=== PATIENT | male | born 1975 | race Caucasian/White ===

== ENCOUNTER 2022-04-01 15:31 | Emergency (ER) | payer MEDICAID ==
[~2022-04-01] VITALS: Ht 172.7 cm; Wt 79.5 kg
[2022-04-01 16:11] VITALS: BP 98/63
[2022-04-01] MEDS ORDERED: NAPR-1024 PO (16:14)
[2022-04-01] MEDS ORDERED: ALLO-97 PO (16:14)
[2022-04-01] MEDS ORDERED: METO-408 PO (16:16)
[2022-04-01] MEDS ORDERED: TICA90TA PO (16:16)
[2022-04-01] MEDS ORDERED: ASPI-1444 PO (16:16)
[2022-04-01] MEDS ORDERED: ATOR-2 PO (16:16)
[2022-04-01] MEDS ORDERED: KETOROLAC TROMETHAMINE 30 MG/ML VIAL IM ONE (17:15)
[2022-04-01 17:19] LABS: COVID AG,FIA SOURCE NASOPHARYNGEAL
[2022-04-01 17:40] LABS: INFLUENZA TYPE A NEGATIVE FOR TYPE A (NEGATIVE); INFLUENZA TYPE B NEGATIVE FOR TYPE B (NEGATIVE)
[2022-04-01] MEDS ORDERED: NAPR-1025 PO (18:35)
[2022-04-01] MEDS ORDERED: AZIT250T9 PO (18:36)
== END 2022-04-01 19:08 | disposition home or self-care (01) ==
LOC: EMS 15:57
DX: J18.9 Pneumonia, unspecified organism (principal); M10.9 Gout, unspecified; Z95.818 Presence of other cardiac implants and grafts; Z79.82 Long term (current) use of aspirin; Z20.822 Contact with and (suspected) exposure to COVID-19
CPT/HCPCS: 99284; 71045; 87426; 87804; 96372; J1885